=== PATIENT | female | born 1950 | race Caucasian/White ===

== ENCOUNTER 2022-05-18 08:44 | Outpatient (CLI) | payer MEDICARE, BC | END 2022-05-18 08:45 | disposition home or self-care (01) | LOC: CSHMAMMO 08:44 | PROVIDERS: ATTEND Obstetrics & Gynecology | DX: Z12.31 Encounter for screening mammogram for malignant neoplasm of breast (principal); Z95.0 Presence of cardiac pacemaker; Z91.89 Other specified personal risk factors, not elsewhere classified; Z85.89 Personal history of malignant neoplasm of other organs and systems; Z80.3 Family history of malignant neoplasm of breast | CPT/HCPCS: 77063; 77067 ==